=== PATIENT | male | born 1955 | race Caucasian/White ===

== ENCOUNTER → 2016-12-04 | Outpatient (REF) | payer BC ==
[2016-12-04 13:35] LABS: ALBUMIN 4.3 GM/DL (3.2-5.2); ALBUMIN/GLOBULIN RATIO 1.65 (1.00-1.93); ALKALINE PHOSPHATASE 75 U/L (45-117); ALT/SGPT 24 U/L (12-78); ANION GAP 7 MEQ/L (8-16); AST/SGOT 16 U/L (15-37); BILIRUBIN,TOTAL 0.9 MG/DL (0.2-1.0); BLOOD UREA NITROGEN 17 MG/DL (7-18); CALCIUM LEVEL 8.9 MG/DL (8.5-10.1); CARBON DIOXIDE LEVEL 32 MEQ/L (21-32); CHLORIDE LEVEL 104 MEQ/L (98-107); CHOLESTEROL LEVEL 196 MG/DL (<200); GLOMERULAR FILTRATION RATE > 60.0 (>56); GLUCOSE, FASTING 88 MG/DL (70-105); POTASSIUM SERUM 4.6 MEQ/L (3.5-5.1); SODIUM LEVEL 143 MEQ/L (136-145); TOTAL PROTEIN 6.9 GM/DL (6.4-8.2); TRIGLYCERIDES LEVEL 163 MG/DL (<150)
[2016-12-04 14:34] LABS: MEAN CORPUSCULAR HEMOGLOBIN 31.3 pg (27.0-33.0); MEAN CORPUSCULAR HGB CONC 35.5 g/dl (32.0-36.5); MEAN CORPUSCULAR VOLUME 88.1 fl (80.0-96.0); RED CELL DISTRIBUTION WIDTH 13.5 % (11.5-14.5); WHITE BLOOD COUNT 5.5 K/mm3 (4.0-10.0)
== END ==
LOC: M SFHCPLAZ 12:42
PROVIDERS: ATTEND Internal Medicine
DX: Z00.00 Encounter for general adult medical examination without abnormal findings (principal)

== ENCOUNTER → 2017-10-08 | Outpatient (REF) | payer BC ==
[2017-10-09 12:58] LABS: ALBUMIN 4.5 GM/DL (3.2-5.2); ALBUMIN/GLOBULIN RATIO 1.88 (1.00-1.93); BILIRUBIN,DIRECT 0.2 MG/DL (0.0-0.2); BILIRUBIN,TOTAL 0.8 MG/DL (0.2-1.0); TOTAL PROTEIN 6.9 GM/DL (6.4-8.2)
== END ==
LOC: M SFHCLERA 11:35
PROVIDERS: ATTEND Dermatology
DX: B35.1 Tinea unguium (principal)

== ENCOUNTER → 2017-11-21 | Outpatient (REF) | payer BC ==
[2017-11-22 12:50] LABS: ALBUMIN 4.6 GM/DL (3.2-5.2); ALKALINE PHOSPHATASE 70 U/L (45-117); ALT/SGPT 19 U/L (12-78); AST/SGOT 17 U/L (7-37); BILIRUBIN,DIRECT 0.2 MG/DL (0.0-0.2); BILIRUBIN,TOTAL 0.6 MG/DL (0.2-1.0); TOTAL PROTEIN 7.3 GM/DL (6.4-8.2)
== END ==
LOC: M SFHCLERA 17:00
DX: B35.1 Tinea unguium (principal)
CPT/HCPCS: 80076

== ENCOUNTER → 2017-12-18 | Outpatient (CLI) | payer BC | LOC: M EKG 15:58 | DX: I48.0 Paroxysmal atrial fibrillation (principal) | CPT/HCPCS: 93225 ==

== ENCOUNTER → 2018-01-17 | Outpatient (REF) | payer BC ==
[2018-01-17 21:11] LABS: ALBUMIN 4.5 GM/DL (3.2-5.2); ALBUMIN/GLOBULIN RATIO 2.05 (1.00-1.93); ALKALINE PHOSPHATASE 64 U/L (45-117); ALT/SGPT 21 U/L (12-78); AST/SGOT 22 U/L (7-37); BILIRUBIN,DIRECT 0.2 MG/DL (0.0-0.2); BILIRUBIN,TOTAL 0.8 MG/DL (0.2-1.0); TOTAL PROTEIN 6.7 GM/DL (6.4-8.2)
== END ==
LOC: M SFHCLERA 16:50
DX: B35.1 Tinea unguium (principal)
CPT/HCPCS: 80076

== ENCOUNTER → 2018-09-05 | Outpatient (CLI) | payer BC ==
[2018-09-05 16:20] LABS: PROSTATIC SPECIFIC AG MONITOR 9.93 NG/ML (< 4.0)
== END ==
LOC: M LAB 15:28
DX: R97.20 Elevated prostate specific antigen [PSA] (principal)
CPT/HCPCS: 84153

== ENCOUNTER → 2018-09-23 | Outpatient (REF) | payer BC | LOC: M SFHCLERA 09:26 | DX: L82.1 Other seborrheic keratosis (principal); L91.8 Other hypertrophic disorders of the skin ==

== ENCOUNTER → 2019-01-14 | Outpatient (REF) | payer BC ==
[2019-01-14 15:59] LABS: HEMATOCRIT 41.5 % (42.0-52.0); HEMOGLOBIN 14.7 g/dl (13.5-17.5); MEAN CORPUSCULAR HEMOGLOBIN 31.5 pg (27.0-33.0); MEAN CORPUSCULAR HGB CONC 35.4 g/dl (32.0-36.5); MEAN CORPUSCULAR VOLUME 89.1 fl (80.0-96.0); PLATELET COUNT, AUTOMATED 229 10^3/uL (150-450); RED BLOOD COUNT 4.66 10^6/uL (4.30-6.10); WHITE BLOOD COUNT 6.5 10^3/uL (4.0-10.0)
[2019-01-14 16:27] LABS: ALBUMIN 4.3 GM/DL (3.2-5.2); ALT/SGPT 29 U/L (12-78); BILIRUBIN,TOTAL 0.8 MG/DL (0.2-1.0); BLOOD UREA NITROGEN 21 MG/DL (7-18); CALCIUM LEVEL 8.6 MG/DL (8.8-10.2); CARBON DIOXIDE LEVEL 32 MEQ/L (21-32); CHLORIDE LEVEL 106 MEQ/L (98-107); CHOLESTEROL LEVEL 180 MG/DL (<200); CREATININE FOR GFR 1.08 MG/DL (0.70-1.30); GLOMERULAR FILTRATION RATE > 60.0 (>49); GLUCOSE, FASTING 89 MG/DL (70-100); HDL CHOLESTEROL 50 MG/DL (>40); LDL CHOLESTEROL 104 MG/DL (<100); NON-HDL-C 130 MG/DL; POTASSIUM SERUM 4.5 MEQ/L (3.5-5.1); SODIUM LEVEL 141 MEQ/L (136-145); TOTAL PROTEIN 6.8 GM/DL (6.4-8.2); TRIGLYCERIDES LEVEL 128 MG/DL (<150)
== END ==
LOC: M SFHCPLAZ 14:26
PROVIDERS: ATTEND Internal Medicine
DX: Z00.00 Encounter for general adult medical examination without abnormal findings (principal)

== ENCOUNTER → 2019-09-25 | Outpatient (REF) | payer BC | LOC: M LAB REF 17:15 | PROVIDERS: ATTEND Internal Medicine | DX: R97.20 Elevated prostate specific antigen [PSA] (principal) ==

== ENCOUNTER → 2019-11-07 | Outpatient (REF) | payer BC | LOC: M LAB REF 15:25 | PROVIDERS: ATTEND Physician Assistant | DX: N40.0 Benign prostatic hyperplasia without lower urinary tract symptoms (principal) ==

== ENCOUNTER → 2020-01-30 | Outpatient (REF) | payer BC ==
[2020-01-30 12:56] LABS: ALBUMIN 4.4 GM/DL (3.2-5.2); ALT/SGPT 25 U/L (12-78); BLOOD UREA NITROGEN 19 MG/DL (7-18); CALCIUM LEVEL 9.3 MG/DL (8.8-10.2); CARBON DIOXIDE LEVEL 30 MEQ/L (21-32); CHLORIDE LEVEL 105 MEQ/L (98-107); CHOLESTEROL LEVEL 191 MG/DL (<200); CHOLESTEROL RISK RATIO 3.673 (<5); CREATININE FOR GFR 0.99 MG/DL (0.70-1.30); GLOMERULAR FILTRATION RATE > 60.0 (>49); GLUCOSE, FASTING 82 MG/DL (70-100); HDL CHOLESTEROL 52 MG/DL (>40); LDL CHOLESTEROL 116 MG/DL (<100); NON-HDL-C 139 MG/DL; POTASSIUM SERUM 4.6 MEQ/L (3.5-5.1); SODIUM LEVEL 139 MEQ/L (136-145); TOTAL PROTEIN 7.1 GM/DL (6.4-8.2); TRIGLYCERIDES LEVEL 117 MG/DL (<150)
[2020-01-30 13:09] LABS: HEMATOCRIT 45.6 % (42.0-52.0); MEAN CORPUSCULAR HEMOGLOBIN 31.9 pg (27.0-33.0); MEAN CORPUSCULAR HGB CONC 35.1 g/dl (32.0-36.5); PLATELET COUNT, AUTOMATED 194 10^3/uL (150-450); RED BLOOD COUNT 5.01 10^6/uL (4.30-6.10); WHITE BLOOD COUNT 6.1 10^3/uL (4.0-10.0)
[2020-01-30 13:38] LABS: HEPATITIS C VIRUS ABY INDEX 0.1 INDEX (<0.8)
== END ==
LOC: M SFHCPLAZ 11:00
PROVIDERS: ATTEND Internal Medicine
DX: Z00.00 Encounter for general adult medical examination without abnormal findings (principal); Z11.59 Encounter for screening for other viral diseases; I48.0 Paroxysmal atrial fibrillation; R97.20 Elevated prostate specific antigen [PSA]

== ENCOUNTER → 2020-05-26 | Outpatient (CLI) | payer BC ==
--- NOTE | 2020-05-26 16:51 | REPPI ---
CERVICAL SPINE SERIES: SEVEN VIEWS. HISTORY: Cervical radiculopathy. No comparison imaging. FINDINGS: Lateral views done in flexion/extension and neutral position demonstrate degenerative disc narrowing at C3-4, C5-6, and C6-7. There is anterior and some posterior osteophytic ridging at the C5-6 and C6-7 levels. No subluxation or instability is seen with flexion/extension range of motion. Vertebral body heights are preserved. Alignment is normal. There is osteoarthritic facet hypertrophy, mild in degree, bilaterally in the mid cervical spine on AP view. No bony destructive lesion is seen. Oblique images demonstrate some uncovertebral spurring on the left at C6-7. No other bony neural foraminal narrowing is evident. Open-mouth odontoid view is unremarkable. IMPRESSION: Degenerative spondylosis changes as above, most pronounced at C5-6 and C6-7. Mild bony foraminal narrowing suspected on the left at C6-7. Electronically Signed by Chuy Landin MD 05/26/2020 04:59 P
--- NOTE | 2020-05-26 16:52 | REPPI ---
LEFT SHOULDER SERIES: THREE VIEWS. HISTORY: Cervical radiculopathy. FINDINGS: The left glenohumeral and acromioclavicular joints are normally aligned. Periarticular soft tissues are unremarkable. The visualized left hemithorax shows no abnormality. No erosive changes seen. IMPRESSION: Negative radiographs of the left shoulder. Electronically Signed by Chuy Landin MD 05/26/2020 04:59 P
== END ==
LOC: M PLAIMG 11:18
PROVIDERS: ATTEND Physician Assistant Medical
DX: M54.12 Radiculopathy, cervical region (principal); M47.892 Other spondylosis, cervical region

== ENCOUNTER 2020-06-02 13:45 | Outpatient (RCR) | payer BC | END 2020-06-04 | disposition home or self-care (01) | LOC: M PT 13:45 | PROVIDERS: ATTEND Physician Assistant Medical | DX: M54.12 Radiculopathy, cervical region (principal) ==

== ENCOUNTER → 2020-07-05 | Outpatient (RCR) | payer BC | LOC: M PT 06-09 13:00 | PROVIDERS: ATTEND Physician Assistant Medical | DX: M54.2 Cervicalgia (principal) ==

== ENCOUNTER → 2020-07-06 | Outpatient (REF) | payer BC | LOC: M LAB REF 16:05 | PROVIDERS: ATTEND Urology | DX: N40.1 Benign prostatic hyperplasia with lower urinary tract symptoms (principal); R97.20 Elevated prostate specific antigen [PSA] ==

== ENCOUNTER 2020-07-28 15:15 | Outpatient (RCR) | payer BC | END 2020-08-04 | LOC: M PT 15:15 | PROVIDERS: ATTEND Physician Assistant Medical | DX: M54.12 Radiculopathy, cervical region (principal) ==

== ENCOUNTER 2020-09-01 14:30 | Outpatient (RCR) | payer BC | END 2020-09-04 | LOC: M PT 14:30 | PROVIDERS: ATTEND Physician Assistant Medical | DX: M54.12 Radiculopathy, cervical region (principal) ==

== ENCOUNTER → 2020-09-02 | Outpatient (CLI) | payer BC ==
--- NOTE | 2020-09-02 11:41 | REP ---
INDICATION: CERVICAL RADICULOPATHY. Lower neck and left axillary region pain. COMPARISON: None. TECHNIQUE: Sagittal and axial T1 and T2-weighted scans are acquired in the usual fashion with and without fat saturation. Sequences include spin echo, turbo spin-echo, and STIR imaging sequences. FINDINGS: There is slight straightening of the normal cervical lordosis. Vertebral body heights are preserved. Alignment is otherwise normal. Craniocervical junction is unremarkable. Cervical cord is normal in course, caliber, and signal intensity on T1 and T2 weighted scans. No extra vertebral abnormality is observed. There is multilevel degenerative disc disease. Axial and sagittal images at the C2-3 level show no significant abnormality. At C3-C4, there is disc space narrowing and disc desiccation. There is diffuse disc bulging which effaces the ventral margin of the thecal sac. Bilateral uncovertebral spurring produces bilateral neural foraminal narrowing at C3-4. Tthis appears a little more prominent on left than the right. There is mild facet hypertrophy bilaterally. Canal size is borderline. Midline AP dimension of the thecal sac is 7.7 mm at the C3-4 level. There is mild ligamentum flavum hypertrophy indenting the thecal sac dorsolaterally. At C4-C5, there is degenerative disc disease with slight narrowing. A broad-based central focal disc protrusion is seen at C4-5 which compresses the ventral margin of the cord. There is bilateral uncovertebral spurring, right more prominently than left. Mild central canal stenosis is present. Ligamentum flavum hypertrophy participates in this. The midline AP dimension of the thecal sac at C4-C5 is 6.8 mm. There is minimal facet hypertrophy bilaterally. At C5-C6, there is degenerative disc disease changes as well. A small broad-based central disc protrusion is seen indenting the ventral margin of the cord at C5-6. There is mild bilateral uncovertebral spurring at C5-6. This is a little more prominent on the left. There is more T2 CSF fluid visible in front and behind the canal at the C5-6 level. The central canal is larger at C5-6 than at C4-5. AP dimension in the midline is 8.8 mm. At the C6-7 level, there is mild bilateral uncovertebral spurring and diffuse disc bulging. Left-sided uncovertebral spurring produces left-sided foraminal narrowing more so than right. At C7-T1, there is mild diffuse disc bulging. IMPRESSION: Diffuse degenerative disc disease. The dominant findings are C3-4, C4-5, and C5-6 where there is some central canal narrowing in addition to focal disc protrusion and multilevel neural foraminal narrowing as above. <Electronically signed by Star Landin > 09/02/20 [id number]
== END ==
LOC: M RAD 09:06
PROVIDERS: ATTEND Internal Medicine
DX: M54.12 Radiculopathy, cervical region (principal)

== ENCOUNTER 2020-09-08 08:43 | Outpatient (RCR) | payer BC | END 2020-10-04 | LOC: M PT 08:43 | PROVIDERS: ATTEND Physician Assistant Medical | DX: M54.12 Radiculopathy, cervical region (principal) ==

== ENCOUNTER → 2021-02-24 | Outpatient (REF) | payer BC ==
[2021-02-24 10:48] LABS: HEMATOCRIT 42.5 % (42.0-52.0); HEMOGLOBIN 14.8 g/dl (13.5-17.5); MEAN CORPUSCULAR HEMOGLOBIN 31.4 pg (27.0-33.0); MEAN CORPUSCULAR HGB CONC 34.8 g/dl (32.0-36.5); PLATELET COUNT, AUTOMATED 195 10^3/uL (150-450); RED BLOOD COUNT 4.72 10^6/uL (4.30-6.10); WHITE BLOOD COUNT 6.1 10^3/uL (4.0-10.0)
[2021-02-24 11:15] LABS: ALBUMIN 4.5 GM/DL (3.2-5.2); ALT/SGPT 22 U/L (12-78); BILIRUBIN,TOTAL 1.3 MG/DL (0.2-1.0); BLOOD UREA NITROGEN 18 MG/DL (7-18); CARBON DIOXIDE LEVEL 32 MEQ/L (21-32); CHLORIDE LEVEL 107 MEQ/L (98-107); CHOLESTEROL LEVEL 182 MG/DL (<200); CHOLESTEROL RISK RATIO 3.192 (<5); CREATININE FOR GFR 1.03 MG/DL (0.70-1.30); GLOMERULAR FILTRATION RATE > 60.0 (>49); GLUCOSE, FASTING 88 MG/DL (70-100); HDL CHOLESTEROL 57 MG/DL (>40); LDL CHOLESTEROL 99 MG/DL (<100); MAGNESIUM LEVEL 2.5 MG/DL (1.8-2.4); NON-HDL-C 125 MG/DL; POTASSIUM SERUM 4.4 MEQ/L (3.5-5.1); SODIUM LEVEL 141 MEQ/L (136-145); TOTAL PROTEIN 7.2 GM/DL (6.4-8.2); TRIGLYCERIDES LEVEL 129 MG/DL (<150)
== END ==
LOC: M LAB REF 10:31
PROVIDERS: ATTEND Internal Medicine
DX: I48.0 Paroxysmal atrial fibrillation (principal); R97.20 Elevated prostate specific antigen [PSA]

== ENCOUNTER → 2021-03-09 | Outpatient (CLI) | payer BC ==
--- NOTE | 2021-03-10 06:17 | REPPI ---
INDICATION: S22.42XD S22.21XD CLSD FRACTURE OF MULTIPLE RIBS OF LEFT MYRNA COMPARISON: None. TECHNIQUE: PA and lateral. FINDINGS: The mediastinum and cardiac silhouette are normal. Opacification at the left lung base with blunting of the diaphragmatic surface and costophrenic angles suggests pleural effusion versus chronic change given the patient's history of prior trauma. The remainder of the aerated lung santizo are normal. The skeletal structures are intact. IMPRESSION: Opacity at the left lung base may reflect chronic change versus pleural effusion with passive atelectasis. <Electronically signed by Kit Aguirre > 03/10/21 [id number]
== END ==
LOC: M PLAIMG 13:45
PROVIDERS: ATTEND Internal Medicine
DX: S22.21XD Fracture of manubrium, subsequent encounter for fracture with routine healing (principal); S22.42XD Multiple fractures of ribs, left side, subsequent encounter for fracture with routine healing

== ENCOUNTER → 2021-03-09 | Outpatient (REF) | payer BC ==
[2021-03-09 15:25] LABS: BASO % 0.4 % (0.0-1.0); EOS # 0.1 10^3/uL (0.0-0.5); EOS % 2.4 % (0.0-3.0); HEMATOCRIT 37.6 % (42.0-52.0); HEMOGLOBIN 12.9 g/dl (13.5-17.5); LYMPH # 0.9 10^3/uL (1.5-5.0); LYMPH % 16.4 % (24.0-44.0); MEAN CORPUSCULAR HEMOGLOBIN 31.2 pg (27.0-33.0); MEAN CORPUSCULAR HGB CONC 34.3 g/dl (32.0-36.5); MONO # 0.5 10^3/uL (0.0-0.8); NEUTROPHILS # 3.9 10^3/uL (1.5-8.5); NEUTROPHILS % 71.4 % (36.0-66.0); PLATELET COUNT, AUTOMATED 236 10^3/uL (150-450); RED BLOOD COUNT 4.13 10^6/uL (4.30-6.10); WHITE BLOOD COUNT 5.4 10^3/uL (4.0-10.0)
== END ==
LOC: M SFHCPLAZ 13:45
PROVIDERS: ATTEND Internal Medicine
DX: T07.XXXA Unspecified multiple injuries, initial encounter (principal); V89.2XXA Person injured in unspecified motor-vehicle accident, traffic, initial encounter

== ENCOUNTER → 2021-04-08 | Outpatient (CLI) | payer OTHER ==
--- NOTE | 2021-04-08 13:31 | REPPI ---
INDICATION: T07.XXXA M79.641 PAIN IN RIGHT HAND COMPARISON: None. TECHNIQUE: AP, lateral, bilateral oblique views right . FINDINGS: There is no evidence for acute fracture or dislocation and the described area of maximal tenderness overlying the back of the metacarpal bone region appears normal. The metacarpal bones themselves appear normal as do the metacarpophalangeal joints. There is no subcutaneous emphysema or foreign body. Of note, there is subtle irregularity at the head of the 2nd digit middle phalanx which is nonspecific and may represent old injury. There also appears to be a subtle cystic lesion at the head of the 3rd digit middle phalanx which is suggestive of a small benign enchondroma. IMPRESSION: In the region of pain related to the patient's recent injury overlying the metacarpal bones, there is no obvious acute findings by radiographic evaluation. Changes related to the 2nd and 3rd middle phalanges as noted above. <Electronically signed by Kit Aguirre > 04/08/21 [id number]
== END ==
LOC: M PLAIMG 12:19
PROVIDERS: ATTEND Internal Medicine
DX: T07.XXXA Unspecified multiple injuries, initial encounter (principal); M79.641 Pain in right hand

== ENCOUNTER → 2021-04-14 | Outpatient (REF) | payer BC | LOC: M PLALAB 12:54 | PROVIDERS: ATTEND Urology | DX: R97.20 Elevated prostate specific antigen [PSA] (principal) ==

== ENCOUNTER → 2021-05-31 | Outpatient (CLI) | payer OTHER ==
--- NOTE | 2021-05-31 16:43 | REP ---
INDICATION: PLEURAL EFFUSION. COMPARISON: Comparison chest x-ray March 09, 2021. TECHNIQUE: Two views.. FINDINGS: The lungs are well inflated and free of infiltrate. The pleural angles are sharp. The heart size is normal. Pulmonary vasculature is not increased. No significant bony abnormality is seen. The previously noted left pleural effusion has resolved. There are old healed rib fractures on the left laterally. IMPRESSION: No active disease.. <Electronically signed by Star Landin > 05/31/21 [id number]
== END ==
LOC: M PLAIMG 14:28
PROVIDERS: ATTEND Internal Medicine
DX: J90 Pleural effusion, not elsewhere classified (principal)

== ENCOUNTER → 2021-08-04 | Outpatient (CLI) | payer OTHER ==
[~2021-08-04] MED LIST: FLOM0.4C39 PO
== END ==
LOC: M LABSMTC 09:31
PROVIDERS: ATTEND Anesthesiology
DX: Z01.812 Encounter for preprocedural laboratory examination (principal); Z20.822 Contact with and (suspected) exposure to COVID-19

== ENCOUNTER 2021-08-08 06:51 | Day surgery (SDC) | payer BC ==
[~2021-08-08] VITALS: Ht 185.4 cm; Wt 88.5 kg
[~2021-08-08 06:51] MED LIST changes: +LIDOCAINE 2% MDV 20ML VIAL As Ordered ONE; +NS 1,000 ML IV ONE; +fentaNYL 100 MCG/2 ML INJECTION (J3010) As Ordered ONE; +propofoL 500 MG/50 ML VIAL As Ordered ONE
--- NOTE | 2021-08-08 07:49 | ROOR ---
Patient Name: Jaime Mackenzie Procedure Date: 08/08/2021 7:30 AM Date of : 1955 Age: 66 Room: [facility] Gender: Male Note Status: Finalized Procedure: Upper Endoscopy + Biopsies + Balloon Dilatation Indications: Heartburn, Exclusion of Brownlee's esophagus Providers: Nigel Good MD Referring MD: Zoltan Layton MD Requesting Provider: Medicines: Monitored Anesthesia Care Complications: No immediate complications. Procedure: Pre-Anesthesia Assessment: - The heart rate, respiratory rate, oxygen saturations, blood pressure, adequacy of pulmonary ventilation, and response to care were monitored throughout the procedure. The Endoscope was introduced through the mouth, and advanced to the second part of duodenum. The upper GI endoscopy was accomplished without difficulty. The patient tolerated the procedure well. Findings: The Z-line was irregular and was found 40 cm from the incisors. Multiple biopsies were obtained with cold forceps for evaluation to rule out Brownlee's Esophagus randomly at the gastroesophageal junction. A TTS dilator was passed through the scope. Dilation with an 18-19-20 mm balloon dilator was performed to 20 mm. Localized mildly erythematous mucosa without bleeding was found in the gastric antrum. Biopsies were taken with a cold forceps for Helicobacter pylori testing. The exam of the duodenum was otherwise normal. Impression: - Z-line irregular, 40 cm from the incisors. Dilated. - Erythematous mucosa in the antrum. Biopsied. - Multiple biopsies were obtained at the gastroesophageal junction. - The examination was otherwise normal. Recommendation: - Patient has a contact number available for emergencies. The signs and symptoms of potential delayed complications were discussed with the patient. Return to normal activities tomorrow. Written discharge instructions were provided to the patient. - High fiber diet. - Discharge patient to home. - Continue present medications. - Await pathology results. - Telephone GI clinic for pathology results in 1 week. - Return to referring physician. - Repeat upper endoscopy for surveillance based on pathology results. - The findings and recommendations were discussed with the patient. Procedure Code(s): --- Professional --- 27787, Esophagogastroduodenoscopy, flexible, transoral; with transendoscopic balloon dilation of esophagus (less than 30 mm diameter) Diagnosis Code(s): --- Professional --- K22.8, Other specified diseases of esophagus K31.89, Other diseases of stomach and duodenum R12, Heartburn CPT copyright 2019 [employer]. All rights reserved. The codes documented in this report are preliminary and upon groover runner review may be revised to meet current compliance requirements. Nigel Good MD Nigel Good MD 08/08/2021 7:48:58 AM Electronically signed by Nigel Good MD Number of Addenda: 0 Note Initiated On: 08/08/2021 7:30 AM Estimated Blood Loss: Estimated blood loss: none.
--- NOTE | 2021-08-08 08:09 | ROOR ---
Patient Name: Jaime Mackenzie Procedure Date: 08/08/2021 7:31 AM Date of : 1955 Age: 66 Room: [facility] Gender: Male Note Status: Finalized Procedure: Total Colonoscopy to Cecum Indications: Colon cancer screening in patient at increased risk: Family history of 1st-degree relative with colon polyps, Incidental - Change in bowel habits Providers: Nigel Good MD Referring MD: Zoltan Layton MD Requesting Provider: Medicines: Monitored Anesthesia Care Complications: No immediate complications. Procedure: Pre-Anesthesia Assessment: - The heart rate, respiratory rate, oxygen saturations, blood pressure, adequacy of pulmonary ventilation, and response to care were monitored throughout the procedure. The Colonoscope was introduced through the anus and advanced to the cecum, identified by appendiceal orifice and ileocecal valve. The colonoscopy was performed without difficulty. The patient tolerated the procedure well. The quality of the bowel preparation was good. Findings: The perianal and digital rectal examinations were normal. Non-bleeding internal hemorrhoids were found during retroflexion. The hemorrhoids were Grade II (internal hemorrhoids that prolapse but reduce spontaneously). One small angioectasia without bleeding was found in the proximal ascending colon. The exam was otherwise without abnormality on direct and retroflexion views. Impression: - Non-bleeding internal hemorrhoids. - One non-bleeding colonic angioectasia. - The examination was otherwise normal on direct and retroflexion views. - No specimens collected. - The exam was otherwise normal to the cecum. Recommendation: - Patient has a contact number available for emergencies. The signs and symptoms of potential delayed complications were discussed with the patient. Return to normal activities tomorrow. Written discharge instructions were provided to the patient. - High fiber diet. - Discharge patient to home. - Continue present medications. - Repeat colonoscopy in 5 years for surveillance. - Return to referring physician. - The findings and recommendations were discussed with the patient. Procedure Code(s): --- Professional --- G0105, Colorectal cancer screening; colonoscopy on individual at high risk Diagnosis Code(s): --- Professional --- Z83.71, Family history of colonic polyps K64.1, Second degree hemorrhoids K55.20, Angiodysplasia of colon without hemorrhage CPT copyright 2019 [employer]. All rights reserved. The codes documented in this report are preliminary and upon joist setter review may be revised to meet current compliance requirements. Nigel Good MD Nigel Good MD 08/08/2021 8:08:51 AM Electronically signed by Nigel Good MD Number of Addenda: 0 Note Initiated On: 08/08/2021 7:31 AM Estimated Blood Loss: Estimated blood loss: none.
[2021-08-08 08:30] VITALS: BP 111/66
== END 2021-08-08 08:44 | disposition home or self-care (01) ==
LOC: M OPP 06:51
PROVIDERS: ATTEND Internal Medicine Gastroenterology
DX: Z12.11 Encounter for screening for malignant neoplasm of colon (principal); Z83.71 Family history of colonic polyps; K55.20 Angiodysplasia of colon without hemorrhage; K64.1 Second degree hemorrhoids; K22.89 Other specified disease of esophagus; K31.89 Other diseases of stomach and duodenum; R12 Heartburn; Z79.899 Other long term (current) drug therapy
CPT/HCPCS: 43239; 43249; 45378; 88305; J3010

== ENCOUNTER → 2021-12-05 | Outpatient (REF) ==
[~2021-12-05] MED LIST changes: -LIDOCAINE 2% MDV 20ML VIAL As Ordered ONE; -NS 1,000 ML IV ONE; -fentaNYL 100 MCG/2 ML INJECTION (J3010) As Ordered ONE; -propofoL 500 MG/50 ML VIAL As Ordered ONE
== END ==
LOC: M EMP 15:45
PROVIDERS: ATTEND Family Medicine
DX: Z11.52 Encounter for screening for COVID-19 (principal); Z20.822 Contact with and (suspected) exposure to COVID-19

== ENCOUNTER → 2022-02-21 | Outpatient (REF) | payer BC ==
[2022-02-21 16:19] LABS: HEMATOCRIT 40.3 % (42.0-52.0); HEMOGLOBIN 14.5 g/dl (13.5-17.5); MEAN CORPUSCULAR HEMOGLOBIN 31.9 pg (27.0-33.0); MEAN CORPUSCULAR VOLUME 88.8 fl (80.0-96.0); PLATELET COUNT, AUTOMATED 183 10^3/uL (150-450); RED BLOOD COUNT 4.54 10^6/uL (4.30-6.10); WHITE BLOOD COUNT 5.5 10^3/uL (4.0-10.0)
[2022-02-21 16:56] LABS: ALBUMIN 4.2 GM/DL (3.2-5.2); ALT/SGPT 26 U/L (12-78); BILIRUBIN,TOTAL 1.4 MG/DL (0.2-1.0); BLOOD UREA NITROGEN 22 MG/DL (7-18); CALCIUM LEVEL 8.6 MG/DL (8.8-10.2); CARBON DIOXIDE LEVEL 32 MEQ/L (21-32); CHLORIDE LEVEL 106 MEQ/L (98-107); CHOLESTEROL LEVEL 163 MG/DL (<200); CHOLESTEROL RISK RATIO 3.326 (<5); CREATININE FOR GFR 1.01 MG/DL (0.70-1.30); GLOMERULAR FILTRATION RATE > 60.0 (>49); GLUCOSE, FASTING 77 MG/DL (70-100); HDL CHOLESTEROL 49 MG/DL (>40); LDL CHOLESTEROL 94 MG/DL (<100); NON-HDL-C 114 MG/DL; POTASSIUM SERUM 4.4 MEQ/L (3.5-5.1); SODIUM LEVEL 140 MEQ/L (136-145); TOTAL PROTEIN 6.6 GM/DL (6.4-8.2); TRIGLYCERIDES LEVEL 99 MG/DL (<150)
== END ==
LOC: M SFHCPLAZ 16:02
PROVIDERS: ATTEND Internal Medicine
DX: Z00.00 Encounter for general adult medical examination without abnormal findings (principal)

== ENCOUNTER → 2022-03-31 | Outpatient (REF) | LOC: M EMP 14:50 | PROVIDERS: ATTEND Family Medicine | DX: Z20.822 Contact with and (suspected) exposure to COVID-19 (principal) ==

== ENCOUNTER → 2022-08-02 | Outpatient (CLI) | payer BC | LOC: M LAB 15:30 | PROVIDERS: ATTEND Urology | DX: R97.20 Elevated prostate specific antigen [PSA] (principal) ==

== ENCOUNTER → 2023-02-08 | Outpatient (CLI) | payer MEDICARE, BC ==
[2023-02-08 11:01] LABS: HEMATOCRIT 41.8 % (42.0-52.0); HEMOGLOBIN 14.8 g/dl (13.5-17.5); MEAN CORPUSCULAR HEMOGLOBIN 31.8 pg (27.0-33.0); MEAN CORPUSCULAR HGB CONC 35.4 g/dl (32.0-36.5); MEAN CORPUSCULAR VOLUME 89.9 fl (80.0-96.0); PLATELET COUNT, AUTOMATED 192 10^3/uL (150-450); RED BLOOD COUNT 4.65 10^6/uL (4.30-6.10); WHITE BLOOD COUNT 5.2 10^3/uL (4.0-10.0)
[2023-02-08 11:06] LABS: C REACTIVE PROTEIN QUANTITATIV < 0.40 MG/DL (<1.0)
[2023-02-08 11:08] LABS: CHOLESTEROL LEVEL 184 MG/DL (<200); CHOLESTEROL RISK RATIO 3.36 (<5); FREE T4 0.99 NG/DL (0.89-1.76); HDL CHOLESTEROL 54.6 MG/DL (>40); NON-HDL-C 129.4 MG/DL; THYROID STIMULATING HORMONE 1.877 uIU/ML (0.55-4.78); TRIGLYCERIDES LEVEL 57 MG/DL (<150)
[2023-02-08 11:09] LABS: TOTAL 25(OH) VITAMIN D 28.6 NG/ML (20.0-100.0); VITAMIN B12 LEVEL 501 PG/ML (211-911)
[2023-02-08 11:30] LABS: CREATININE, URINE 127.7 MG/DL; MALB URINE SIEMENS < 3.0 MG/L; MAU/CREAT RATIO 2.3 MCG/MG (0.0-30.0)
[2023-02-08 12:06] LABS: HEMOGLOBIN A1c 4.4 % (4.0-6.0)
[2023-02-09 13:07] LABS: INSULIN LEVEL 5.2 uIU/mL (2.6-24.9); LIPOPROTEIN (a) 165.9 nmol/L (<75.0)
== END ==
LOC: M PLALAB 08:10
PROVIDERS: ATTEND Internal Medicine Hematology
DX: E78.5 Hyperlipidemia, unspecified (principal); Z79.899 Other long term (current) drug therapy

== ENCOUNTER → 2023-08-06 | Outpatient (CLI) | payer MEDICARE ==
[2023-08-06 15:58] LABS: BASO # 0.1 10^3/uL (0.0-0.2); BASO % 0.9 % (0.0-1.0); EOS # 0.1 10^3/uL (0.0-0.5); EOS % 1.6 % (0.0-3.0); HEMATOCRIT 40.8 % (42.0-52.0); HEMOGLOBIN 14.4 g/dl (13.5-17.5); LYMPH # 1.3 10^3/uL (1.5-5.0); LYMPH % 23.3 % (24.0-44.0); MEAN CORPUSCULAR HEMOGLOBIN 31.4 pg (27.0-33.0); MEAN CORPUSCULAR HGB CONC 35.3 g/dl (32.0-36.5); MEAN CORPUSCULAR VOLUME 89.1 fl (80.0-96.0); MONO # 0.5 10^3/uL (0.0-0.8); MONO % 8.5 % (2.0-8.0); NEUTROPHILS # 3.7 10^3/uL (1.5-8.5); NEUTROPHILS % 65.7 % (36.0-66.0); PLATELET COUNT, AUTOMATED 190 10^3/uL (150-450); RED BLOOD COUNT 4.58 10^6/uL (4.30-6.10); WHITE BLOOD COUNT 5.7 10^3/uL (4.0-10.0)
[2023-08-06 16:08] LABS: ALBUMIN 4.3 G/DL (3.2-5.2); ALKALINE PHOSPHATASE 72 U/L (46-116); ALT/SGPT 14 U/L (7.0-40); AST/SGOT 17 U/L (<34); BILIRUBIN,TOTAL 1.1 MG/DL (0.3-1.2); BLOOD UREA NITROGEN 20 MG/DL (9-23); CALCIUM LEVEL 9.4 MG/DL (8.3-10.6); CARBON DIOXIDE LEVEL 29 MMOL/L (20-31); CHLORIDE LEVEL 106 MMOL/L (98-107); CREATININE FOR GFR 1.02 MG/DL (0.70-1.30); FERRITIN 34.1 NG/ML (10.5-307.3); GLOMERULAR FILTRATION RATE > 60.0 (>49); GLUCOSE, FASTING 94 MG/DL (74-106); MAGNESIUM LEVEL 2.1 MG/DL (1.8-2.4); POTASSIUM SERUM 4.6 MMOL/L (3.5-5.1); SODIUM LEVEL 142 MMOL/L (136-145); THYROID STIMULATING HORMONE 2.602 uIU/ML (0.55-4.78); TOTAL PROTEIN 6.5 G/DL (5.7-8.2)
[2023-08-06 16:09] LABS: FREE T4 1.02 NG/DL (0.89-1.76)
== END ==
LOC: M PLALAB 13:41
PROVIDERS: ATTEND Family Medicine
DX: I48.0 Paroxysmal atrial fibrillation (principal)

== ENCOUNTER 2024-01-10 07:37 | Day surgery (SDC) | payer MEDICARE ==
[~2024-01-10] VITALS: Ht 200.7 cm; Wt 91.1 kg
[~2024-01-10 07:37] MED LIST changes: +PRIL20TA2 PO
[2024-01-10] MEDS ORDERED: fentaNYL 100 MCG/2 ML INJECTION As Ordered ONE (07:41)
[2024-01-10] MEDS ORDERED: LIDOCAINE 2% 100MG/5ML SDV (FOR ANES.) As Ordered ONE (07:41)
[2024-01-10] MEDS ORDERED: propofoL 200 MG/20 ML VIAL As Ordered ONE (07:41)
[2024-01-10] MEDS: NS 1,000 ML IV ONE (07:50)
[2024-01-10 08:31] VITALS: TEMP 97.6
[2024-01-10 08:51] VITALS: BP 123/72; O2SAT 96
== END 2024-01-10 09:35 | disposition home or self-care (01) ==
LOC: M OPP 07:37
PROVIDERS: ATTEND Internal Medicine Gastroenterology
DX: K22.89 Other specified disease of esophagus (principal); Z79.899 Other long term (current) drug therapy
CPT/HCPCS: 43239; 88305; J3010

== ENCOUNTER → 2024-04-02 | Outpatient (CLI) | payer MEDICARE | LOC: M PLALAB 08:44 | PROVIDERS: ATTEND Urology | DX: R97.20 Elevated prostate specific antigen [PSA] (principal) ==

== ENCOUNTER → 2024-04-02 | Outpatient (CLI) | payer MEDICARE ==
[2024-04-02 14:28] LABS: BASO % 0.6 % (0.0-1.0); EOS # 0.1 10^3/uL (0.0-0.5); EOS % 1.9 % (0.0-3.0); HEMATOCRIT 40.4 % (42.0-52.0); LYMPH # 1.2 10^3/uL (1.5-5.0); LYMPH % 26.3 % (24.0-44.0); MEAN CORPUSCULAR HEMOGLOBIN 31.5 pg (27.0-33.0); MEAN CORPUSCULAR HGB CONC 34.7 g/dl (32.0-36.5); MEAN CORPUSCULAR VOLUME 90.8 fl (80.0-96.0); MONO # 0.6 10^3/uL (0.0-0.8); MONO % 12.2 % (2.0-8.0); NEUTROPHILS # 2.7 10^3/uL (1.5-8.5); NEUTROPHILS % 58.8 % (36.0-66.0); PLATELET COUNT, AUTOMATED 198 10^3/uL (150-450); RED BLOOD COUNT 4.45 10^6/uL (4.30-6.10); WHITE BLOOD COUNT 4.7 10^3/uL (4.0-10.0)
[2024-04-02 14:32] LABS: HEMOGLOBIN A1c 4.6 % (4.0-6.0)
[2024-04-02 14:42] LABS: MAU/CREAT RATIO 2.6 MCG/MG (0.0-30.0)
[2024-04-02 14:45] LABS: THYROID STIMULATING HORMONE 2.486 uIU/ML (0.55-4.78)
[2024-04-02 14:46] LABS: C REACTIVE PROTEIN QUANTITATIV < 0.40 MG/DL (<1.0); TOTAL 25(OH) VITAMIN D 24.8 NG/ML (20.0-100.0); VITAMIN B12 LEVEL 515 PG/ML (211-911)
[2024-04-02 14:47] LABS: ALBUMIN 4.2 G/DL (3.2-5.2); ALKALINE PHOSPHATASE 68 U/L (46-116); ALT/SGPT 21 U/L (7.0-40); AST/SGOT 14 U/L (<34); BILIRUBIN,TOTAL 1.5 MG/DL (0.3-1.2); BLOOD UREA NITROGEN 15 MG/DL (9-23); CALCIUM LEVEL 8.8 MG/DL (8.3-10.6); CARBON DIOXIDE LEVEL 28 MMOL/L (20-31); CHLORIDE LEVEL 106 MMOL/L (98-107); CHOLESTEROL LEVEL 164 MG/DL (<200); CHOLESTEROL RISK RATIO 3.12 (<5); CREATININE FOR GFR 1.02 MG/DL (0.70-1.30); FREE T4 1.19 NG/DL (0.89-1.76); GLOMERULAR FILTRATION RATE > 60.0 (>49); GLUCOSE, FASTING 72 MG/DL (74-106); HDL CHOLESTEROL 52.5 MG/DL (>40); LDL CHOLESTEROL 98.3 MG/DL (<100); NON-HDL-C 111.5 MG/DL; POTASSIUM SERUM 4.4 MMOL/L (3.5-5.1); SODIUM LEVEL 141 MMOL/L (136-145); TOTAL PROTEIN 6.3 G/DL (5.7-8.2); TRIGLYCERIDES LEVEL 66 MG/DL (<150)
== END ==
LOC: M PLALAB 08:42
PROVIDERS: ATTEND Internal Medicine Hematology
DX: E78.00 Pure hypercholesterolemia, unspecified (principal); Z79.899 Other long term (current) drug therapy

== ENCOUNTER → 2025-03-16 | Outpatient (CLI) | payer MEDICARE ==
[~2025-03-16] MED LIST changes: -FLOM0.4C39 PO; +TAMS-18 PO
[2025-03-16 11:17] LABS: BASO % 0.8 % (0.0-1.0); EOS # 0.1 10^3/uL (0.0-0.5); EOS % 2.2 % (0.0-3.0); HEMATOCRIT 39.2 % (42.0-52.0); HEMOGLOBIN 13.3 g/dl (13.5-17.5); LYMPH # 1.3 10^3/uL (1.5-5.0); LYMPH % 25.4 % (24.0-44.0); MEAN CORPUSCULAR HEMOGLOBIN 30.1 pg (27.0-33.0); MEAN CORPUSCULAR HGB CONC 33.9 g/dl (32.0-36.5); MEAN CORPUSCULAR VOLUME 88.7 fl (80.0-96.0); MONO # 0.6 10^3/uL (0.0-0.8); MONO % 12.2 % (2.0-8.0); NEUTROPHILS % 59.2 % (36.0-66.0); PLATELET COUNT, AUTOMATED 230 10^3/uL (150-450); RED BLOOD COUNT 4.42 10^6/uL (4.30-6.10); WHITE BLOOD COUNT 5.1 10^3/uL (4.0-10.0)
[2025-03-16 11:41] LABS: C REACTIVE PROTEIN QUANTITATIV < 0.50 MG/DL (<1.0)
[2025-03-16 11:45] LABS: ALBUMIN 4.3 G/DL (3.2-5.2); ALKALINE PHOSPHATASE 78 U/L (40-129); ALT/SGPT 21 U/L (7.0-40); AST/SGOT 27 U/L (<34); BILIRUBIN,TOTAL 1.3 MG/DL (0.3-1.2); BLOOD UREA NITROGEN 22 MG/DL (9-23); CARBON DIOXIDE LEVEL 29 MMOL/L (20-31); CHLORIDE LEVEL 107 MMOL/L (98-107); CREATININE FOR GFR 1.13 MG/DL (0.70-1.30); GLOMERULAR FILTRATION RATE 71.2 (>49); GLUCOSE, FASTING 87 MG/DL (74-106); MAGNESIUM LEVEL 2.3 MG/DL (1.8-2.4); POTASSIUM SERUM 4.4 MMOL/L (3.5-5.1); SODIUM LEVEL 144 MMOL/L (136-145); TOTAL PROTEIN 6.6 G/DL (5.7-8.2)
[2025-03-16 12:48] LABS: FERRITIN 10.9 NG/ML (10.5-307.3)
[2025-03-16 12:49] LABS: TOTAL 25(OH) VITAMIN D 28.2 NG/ML (20.0-100.0)
[2025-03-16 13:31] LABS: PTH INTACT 71.3 PG/ML (18.5-88.0)
== END ==
LOC: M LAB 08:07 → M PLALAB 08:07
PROVIDERS: ATTEND Family Medicine
DX: E55.9 Vitamin D deficiency, unspecified (principal); R17 Unspecified jaundice; I47.10 Supraventricular tachycardia, unspecified; E78.00 Pure hypercholesterolemia, unspecified

== ENCOUNTER → 2025-09-24 | Outpatient (CLI) | payer MEDICARE | LOC: M PLAIMG 10:42 | PROVIDERS: ATTEND Family Medicine | DX: M47.812 Spondylosis without myelopathy or radiculopathy, cervical region (principal) ==